=== PATIENT | female | born 1945 | race Hispanic/Latino ===

== ENCOUNTER 2021-10-17 08:00 | Day surgery (SDC) | payer MEDICARE ==
[2021-10-15 09:35] VITALS: BP 124/59
[2021-10-15 09:57] LABS: BASOPHILS % (AUTO) 0.5 % (0.0-5.0); EOSINOPHILS % (AUTO) 1.5 % (0.0-8.0); HEMATOCRIT 35.4 % (36-48); LYMPHOCYTES % (AUTO) 20.7 % (21.0-51.0); MEAN CORPUSCULAR HEMOGLOBIN 32.5 pg (27.0-33.0); MEAN CORPUSCULAR HGB CONC 31.6 g/dL (32.0-36.0); MEAN CORPUSCULAR VOLUME 102.6 fL (79-99); MONOCYTES % (AUTO) 9.3 % (3.0-13.0); NEUTROPHILS % (AUTO) 67.8 % (40.0-77.0); PLATELET COUNT (AUTO) 203 K/uL (130-400); RED BLOOD CELL COUNT(AUTO) 3.45 MIL/uL (4.00-5.50); RED CELL DISTRIBUTION WIDTH 13.5 % (11.0-15.5); WHITE BLOOD COUNT (AUTO) 4.1 K/uL (4.8-10.8)
[2021-10-15 10:11] LABS: CREATININE 0.9 mg/dL (0.5-1.5); POTASSIUM 3.6 mmol/L (3.5-5.1)
[2021-10-17] VITALS (13 sets, daily range): BP systolic 126–160; BP diastolic 56–75
[~2021-10-17] VITALS: Ht 157.5 cm; Wt 79.0 kg
[~2021-10-17 08:00] MED LIST: AEC81 PO; AMLO-257 PO; CEFAZOLIN SODIUM 1 GM VIAL IVP SCH; ISOS10TA8 PO; ISOS30TA92 PO; LEVO50CA4 PO; MELO15TA12 PO; METF-446 PO; METO-408 PO; PANT40TA54 PO; ROSU10TA28 PO
[2021-10-17] MEDS ORDERED: CLINDAMYCIN IVPB 900MG/50ML 50 ML IV ONE (08:43)
[2021-10-17] MEDS ORDERED: 0.9%NACL 1000ML 1,000 ML IV ONE (08:43)
[2021-10-17] MEDS ORDERED: EPINEPHRINE 1 MG/ML 30ML VIAL IJ ONE (10:19)
[2021-10-17] MEDS ORDERED: CLINDAMYCIN 900MG/6ML INJ ONE (10:20)
[2021-10-17] MEDS ORDERED: SCOPOLAMINE HYDROBROMIDE 1 EACH ADH..PATCH TD ONE (10:25)
[2021-10-17] MEDS ORDERED: MIDAZOLAM HCL 1 MG/ML 2ML VIAL ONE (10:31)
[2021-10-17] MEDS ORDERED: GLYCOPYRROLATE 1 MG/5 ML SYRINGE ONE (10:31)
[2021-10-17] MEDS ORDERED: DEXAMETHASONE SOD PHOSPHATE 10MG/ML 1ML VIAL ONE (10:31)
[2021-10-17] MEDS ORDERED: SUCCINYLCHOLINE CHLORIDE 20 MG/ML 10 ML VIAL ONE (10:31)
[2021-10-17] MEDS ORDERED: LIDOCAINE PF 100MG/5ML (2%) SYRINGE 5ML ONE (10:31)
[2021-10-17] MEDS ORDERED: NEOSTIGMINE 5MG/5ML SYR IV ONE (10:31)
[2021-10-17] MEDS ORDERED: ROCURONIUM 10MG/1ML SYR 10 MG/ML ML ONE (10:31)
[2021-10-17] MEDS ORDERED: PROPOFOL 10 MG/ML 20ML VIAL IV ONE (10:31)
[2021-10-17] MEDS ORDERED: EPHEDRINE SULFATE 50 MG/ML AMPULE ONE (11:28)
[2021-10-17] MEDS ORDERED: FENTANYL CITRATE PF 50 MCG/1 ML 5ML AMP IV ONE (13:45)
[2021-10-17] MEDS ORDERED: HYDR-4060 PO (14:14)
[2021-10-17] MEDS ORDERED: CLIN-141 PO (14:14)
[2021-10-17] MEDS ORDERED: MEPERIDINE-PF 25 MG/ML SYG ONE (15:06)
[2021-10-17] MEDS ORDERED: ONDANSETRON 4MG INJ ONE (15:33)
[2021-10-17] MEDS ORDERED: METOCLOPRAMIDE 10 MG/2 ML VIAL ONE (15:47)
== END 2021-10-17 16:50 | disposition home or self-care (01) ==
LOC: DAH 08:00
PROVIDERS: ATTEND Orthopaedic Surgery
DX: M75.122 Complete rotator cuff tear or rupture of left shoulder, not specified as traumatic (principal); M75.42 Impingement syndrome of left shoulder; G89.29 Other chronic pain; M19.012 Primary osteoarthritis, left shoulder; E11.9 Type 2 diabetes mellitus without complications; E78.00 Pure hypercholesterolemia, unspecified; Z79.82 Long term (current) use of aspirin; Z79.899 Other long term (current) drug therapy
CPT/HCPCS: 29824; 29826; 29827; 36415; 64415; 73030; 76942; 80048; 82948 ×2; 85025; 87635; A4215; A4221; A4222; A4223; A4565; A4600; A4649 ×4; A4663; A4930; A5120; A6204; C1713 ×2; C9803; G0168; J0171; J0330; J1100; J2001; J2175; J2250; J2405; J2704; J2710; J2765; J3010; J3490 ×3; J7030 ×2

== ENCOUNTER → 2022-11-21 | Outpatient (CLI) | payer MEDICARE ==
[~2022-11-21] MED LIST changes: -CEFAZOLIN SODIUM 1 GM VIAL IVP SCH; +CLIN-141 PO; +HYDR-4060 PO; +IOHEXOL 350 MG/ML 100ML INFUS..BTL IV ONE; -ISOS10TA8 PO
== END | disposition home or self-care (01) ==
LOC: RAH 08:38
PROVIDERS: ATTEND Internal Medicine Cardiovascular Disease
DX: I25.10 Atherosclerotic heart disease of native coronary artery without angina pectoris (principal)
CPT/HCPCS: 75574; Q9967

== ENCOUNTER → 2023-02-19 | Outpatient (CLI) | payer MEDICARE ==
[~2023-02-19] MED LIST changes: -IOHEXOL 350 MG/ML 100ML INFUS..BTL IV ONE
[2023-02-19 15:28] LABS: CREATININE 0.9 mg/dL (0.5-1.5)
== END | disposition home or self-care (01) ==
LOC: LAB 15:04
PROVIDERS: ATTEND Otolaryngology Plastic Surgery within the Head & Neck
DX: H90.3 Sensorineural hearing loss, bilateral (principal)
CPT/HCPCS: 36415; 82565; 84520

== ENCOUNTER → 2023-02-26 | Outpatient (CLI) | payer MEDICARE ==
[~2023-02-26] MED LIST changes: +GADOTERATE MEGLUMINE 10 MMOL/20 ML VIAL IV ONE
== END | disposition home or self-care (01) ==
LOC: RAH 14:57
PROVIDERS: ATTEND Otolaryngology Plastic Surgery within the Head & Neck
DX: I67.82 Cerebral ischemia (principal); H90.3 Sensorineural hearing loss, bilateral
CPT/HCPCS: 70553; A9575